=== PATIENT | female | born 1955 | race Caucasian/White ===

== ENCOUNTER 2021-02-21 11:36 | Outpatient (CLI) | payer OTHER, SELFPAY ==
--- NOTE | 2021-02-21 11:42 | MM_ITS ---
WS: [id number] BILATERAL DIGITAL SCREENING MAMMOGRAPHY WITH CAD CLINICAL INFORMATION: SCREENING HISTORY: Screening mammogram. No current complaints. COMPARISON: July 12, 2019 TECHNIQUE: Bilateral CC and MLO views. FINDINGS: Scattered fibroglandular densities bilaterally. No suspicious focal mass, asymmetry, calcifications, or architectural distortion. No evidence of malignancy. Punctate and vascular calcifications. MM/[id number] IMPRESSION: BI-RADS: 2-Benign FOLLOW UP: 1 Year Follow-up Recommend return to annual screening mammography.
== END 2021-02-21 11:37 | disposition home or self-care (01) ==
LOC: RADSHAW 11:40
PROVIDERS: PCP Nurse Practitioner Family; Visit Provider Nurse Practitioner Family
DX: Z12.31 Encounter for screening mammogram for malignant neoplasm of breast (principal)
CPT/HCPCS: 77067

== ENCOUNTER → 2022-02-27 11:45 | Outpatient (BNVA) | payer OTHER, SELFPAY | PROVIDERS: PCP Nurse Practitioner Family; Visit Provider Nurse Practitioner Family | DX: R63.4 Abnormal weight loss (principal) | CPT/HCPCS: 71046 ==

== ENCOUNTER 2022-04-09 11:25 | Outpatient (CLI) | payer OTHER, SELFPAY ==
--- NOTE | 2022-04-09 11:32 | MM_ITS ---
WS: [id number] VIEWS: MLO and CC views both breasts. 3D digital tomosynthesis is also included in this exam. Comparison made with prior exam of 02/21/2013, 07/31/2014, 08/14/2015, 08/25/2017, 07/12/2019, 02/21/2021 .. Findings: There was no sign of mass, architectural distortion or suspicious calcification in either breast. Sc attered fibroglandular densities MM/[id number] Impression: BI-RADS: 2-Benign FOLLOW-UP: 1 Year Follow-up This mammogram was also analyzed by the Computer Aided Detection System R2 Imag e Library Attendant.
== END 2022-04-09 11:26 | disposition home or self-care (01) ==
LOC: RAD 11:30
PROVIDERS: PCP Nurse Practitioner Family; Visit Provider Nurse Practitioner Family
DX: Z12.31 Encounter for screening mammogram for malignant neoplasm of breast (principal)
CPT/HCPCS: 77063; 77067